=== PATIENT | female | born 2000 ===

== ENCOUNTER 2022-09-01 19:21 | Emergency (ER) | payer OTHER ==
[~2022-09-01] VITALS: Ht 152.4 cm; Wt 44.5 kg
[2022-09-01] MEDS ORDERED: METRONIDAZOLE500 MG PO (23:25)
[2022-09-01] MEDS ORDERED: PEPCID AC20 MG PO (23:25)
[2022-09-01] MEDS ORDERED: ZOFRAN8 MG PO (23:25)
== END 2022-09-01 23:32 | disposition home or self-care (01) ==
LOC: ER 19:21
DX: K52.89 Other specified noninfective gastroenteritis and colitis (principal)